=== PATIENT | female | born 2000 | race African-American/Black ===

== ENCOUNTER 2022-05-25 09:41 | Outpatient (CLI) | payer OTHER | END 2022-05-25 09:42 | disposition home or self-care (01) | LOC: CSHLAB 09:41 | PROVIDERS: ATTEND Advanced Practice Midwife | DX: Z20.822 Contact with and (suspected) exposure to COVID-19 (principal) | CPT/HCPCS: 87811 ==

== ENCOUNTER 2022-05-26 19:00 | Inpatient (IN) | payer OTHER ==
[~2022-05-26 19:00] MED LIST: Acetaminophen 500 MG TAB PO PRN; Butorphanol Tartrate 1 MG/ML VIAL SLOW IVP PRN; Carboprost 250 MCG/ML AMP IM PRN; Diphenoxylate HCl/Atropine Tablet PO PRN; HYDROcodone/Acetaminophen 5/325 mg Tablet PO PRN; Ibuprofen 800 MG TAB PO PRN; Lidocaine 1% (PF) 30 ML VIAL SC PRN; Methylergonovine 0.2 MG/ML VIAL IM PRN; Misoprostol 200 MCG TAB PR PRN; Ondansetron PF 4 MG/2 ML Vial IVP PRN; Promethazine HCl 25 MG/ML VIAL IM PRN; hydrALAZINE 20 MG/ML VIAL SLOW IVP PRN
[2022-05-28 20:26] VITALS: BMI 29.2
[2022-05-28] MEDS ORDERED: NS w/ Oxytocin 30 units 500 ML IV SCH ×2 (21:00)
[2022-05-28 21:54] LABS: Hemoglobin 10.3 g/dL (12.0-15.5); Mean Corpuscular HGB CONC 34.2 g/dL (32.0-36.0); Mean Corpuscular Hemoglobin 29.2 pg (27.0-33.0); Mean Corpuscular Volume 85.3 fl (81.6-98.3); Mean Platelet Volume 11.2 fl (7.4-10.4); Platelet Count 226 10x3/uL (150-450); RBC Distribution Width 13.5 % (11.5-14.5); Red Blood Cell (RBC) Count 3.53 10x6/uL (3.90-5.03); White Blood Cell (WBC) Count 13.4 10x3/uL (3.5-10.5)
[2022-05-28 22:21] LABS: Syphilis Antibody Nonreactive (Nonreactive); Syphilis Antibody Index 0.13 S/CO (<1.00 Non-Reactive)
[2022-05-28 22:22] LABS: Hep B Surf Ag Non-Reactive S/CO (NonReactive)
[2022-05-28 22:24] LABS: HBSAg Index 0.16 S/CO (0-0.99)
[2022-05-28] MEDS: Misoprostol 100 MCG TAB VAG SCH (22:28)
[2022-05-29] MEDS ORDERED: Fentanyl 2 mcg/Bup 0.1% Cadd 100 ML ONE (04:28)
[2022-05-29] MEDS ORDERED: Ondansetron PF 4 MG/2 ML Vial IVP PRN (05:24)
[2022-05-29] MEDS ORDERED: Moisturizing Cream (Eucerin) 113 GM JAR TOP PRN (05:24)
[2022-05-29] MEDS ORDERED: diphenhydrAMINE 50 MG/ML VIAL IVP PRN (05:24)
[2022-05-29] MEDS ORDERED: Acetaminophen 325 MG TAB PO PRN (05:24)
[2022-05-29] MEDS ORDERED: Naloxone HCl 0.4 mg/ml Vial IVP PRN ×2 (05:24)
[2022-05-29] MEDS ORDERED: Promethazine HCl 25 MG/ML VIAL IM PRN (05:24)
[2022-05-29] MEDS ORDERED: Lactated Ringer's 500 ML IV PRN (05:24)
[2022-05-29] MEDS ORDERED: ePHEDrine Sulfate 50 MG/10 ML VIAL SLOW IVP PRN (05:24)
[2022-05-29] MEDS ORDERED: Fentanyl 2 mcg/Bupivacaine 0.1% Cassette 100 ML EPIDURAL SCH (05:30)
[2022-05-29] MEDS ORDERED: Communication Order-Pharmacy FS SCH (05:30)
[2022-05-29] MEDS: Lactated Ringer's 1,000 ML IV SCH (06:01)
[2022-05-29] MEDS: Misoprostol 100 MCG TAB VAG SCH (06:01)
[2022-05-29] MEDS ORDERED: Calcium Carbonate 500 MG ChewTAB PO SCH (06:15)
[2022-05-29] MEDS ORDERED: Bupivacaine/Epinephrine 0.25% 30 ML VIAL ONE (08:00)
[2022-05-29 17:06] LABS: RapidComm Collect By NURSE; pH (Cord, venous) 7.343 (7.250-7.350)
[2022-05-29 17:07] LABS: RapidComm Collect By NURSE
[2022-05-29] MEDS ORDERED: Milk Of Magnesia 30 ML UDCUP PO PRN (18:33)
[2022-05-29] MEDS ORDERED: hydrALAZINE 20 MG/ML VIAL SLOW IVP PRN (18:33)
[2022-05-29] MEDS ORDERED: HYDROcodone/Acetaminophen 5/325 mg Tablet PO PRN (18:33)
[2022-05-29] MEDS ORDERED: NS w/ Oxytocin 30 units 500 ML IV SCH (18:33)
[2022-05-29] MEDS ORDERED: Benzocaine-Menthol 82.5 ML CAN TOP PRN (18:33)
[2022-05-29] MEDS ORDERED: Misoprostol 200 MCG TAB VAG PRN (18:33)
[2022-05-29] MEDS ORDERED: Bisacodyl 10 MG SUPP PR PRN (18:33)
[2022-05-29] MEDS ORDERED: Boostrix 0.5 ML (Tdap) VIAL IM ONE (18:33)
[2022-05-29] MEDS ORDERED: Ferrous Sulfate 325 MG TAB PO SCH (18:45)
[2022-05-29] MEDS: Ibuprofen 800 MG TAB PO SCH (19:14)
[2022-05-29] MEDS: Docusate 100 MG CAP PO SCH (21:56)
[2022-05-30] MEDS: Ibuprofen 800 MG TAB PO SCH ×3 (04:00→22:22)
[2022-05-30] MEDS: HYDROcodone/Acetaminophen 5/325 mg Tablet PO PRN ×2 (07:55→14:13)
[2022-05-30] MEDS: Docusate 100 MG CAP PO SCH ×2 (14:07→22:00)
[2022-05-30] MEDS: Ferrous Sulfate 325 MG TAB PO SCH (14:08)
[2022-05-30] MEDS: Prenatal Vitamin 1 TAB PO SCH (14:14)
[2022-05-30] MEDS: Misoprostol 100 MCG TAB VAG SCH (15:45)
[2022-05-30] MEDS: Lactated Ringer's 1,000 ML IV SCH (15:45)
[2022-05-31] MEDS: Ibuprofen 800 MG TAB PO SCH ×3 (05:32→13:12)
[2022-05-31 07:49] VITALS: BP 122/71; TEMP 98.9
[2022-05-31] MEDS: Ferrous Sulfate 325 MG TAB PO SCH (08:56)
[2022-05-31] MEDS: Prenatal Vitamin 1 TAB PO SCH (10:13)
[2022-05-31] MEDS: Docusate 100 MG CAP PO SCH (10:13)
== END 2022-05-31 14:30 | disposition home or self-care (01) | DRG 807 ==
LOC: CSHLD 05-28 20:00 → CSHPP 05-29 19:26
PROVIDERS: ADMIT Student in an Organized Health Care Education/Training Program; ATTEND Student in an Organized Health Care Education/Training Program
PROC: 10E0XZZ Delivery of Products of Conception, External Approach (ICD-10-PCS; principal; 2022-05-29)
DX: O80 Encounter for full-term uncomplicated delivery (principal); Z37.0 Single live birth; Z3A.40 40 weeks gestation of pregnancy
CPT/HCPCS: 36415; 51702; 82805; 85027; 86780; 86850; 86900; 86901; 87340; J0595; J2590